=== PATIENT | female | born 1960 | race Caucasian/White ===

== ENCOUNTER 2023-12-15 08:51 | Outpatient (CLI) | payer OTHER, SELFPAY ==
--- NOTE | ~2023-12-15 | XR_ITS ---
EXAMINATION: XR shoulder LT min 2V DATE: 12/15/2023 09:05 INDICATION: Left shoulder pain TECHNIQUE: AP internally and externally rotated, AP oblique externally rotated and axillary views of the left shoulder were obtained. COMPARISON: None FINDINGS: Normal alignment. No fracture. Glenohumeral joint is normal. Mild acromioclavicular osteoarthritis. Soft tissues are unremarkable. Lung is clear. IMPRESSION: Mild left acromioclavicular osteoarthritis. Reviewed, dictated and finalized at location B.
== END 2023-12-15 08:52 ==
LOC: MICIMG 08:53
PROVIDERS: PCP Family Medicine; Visit Provider Physician Assistant Medical
DX: M19.012 Primary osteoarthritis, left shoulder (principal)
CPT/HCPCS: 73030